=== PATIENT | male | born 1980 | race Caucasian/White ===

== ENCOUNTER 2023-06-06 13:46 | Emergency (ER) | payer OTHER ==
[~2023-06-06] VITALS: Ht 175.3 cm; Wt 161.3 kg
[2023-06-06 14:13] VITALS: BP 132/84; PULSE 119; RESP 20; TEMP 99.3; O2SAT 94
[2023-06-06] MEDS ORDERED: CEPH-585 PO (14:24)
== END 2023-06-06 14:40 | disposition home or self-care (01) ==
LOC: ER 13:46
DX: S81.832A Puncture wound without foreign body, left lower leg, initial encounter (principal); X58.XXXA Exposure to other specified factors, initial encounter; Y93.89 Activity, other specified; Y92.89 Other specified places as the place of occurrence of the external cause; Y99.8 Other external cause status
CPT/HCPCS: 99283